=== PATIENT | female | born 1950 | race Caucasian/White ===

== ENCOUNTER 2017-08-31 10:57 | Day surgery (SDC) | payer OTHER ==
[~2017-08-31] VITALS: Ht 170.2 cm; Wt 83.9 kg
[~2017-08-31 10:57] MED LIST: Hair, Skin & N1 EACH PO; IBUP600 PO
== END 2017-08-31 15:57 | disposition home or self-care (01) ==
LOC: ORSCMMR 10:57
PROVIDERS: Orthopaedic Surgery
PROC: 0QSK04Z Reposition Left Fibula with Internal Fixation Device, Open Approach (ICD-10-PCS; principal; 2017-08-31 12:30)
DX: S82.842A Displaced bimalleolar fracture of left lower leg, initial encounter for closed fracture (principal); W18.30XA Fall on same level, unspecified, initial encounter
CPT/HCPCS: C1713; J0171; J0330; J0690; J1885; J2250; J3010; J7120

== ENCOUNTER 2021-07-07 20:13 | Emergency (ER) | payer OTHER ==
[~2021-07-07] VITALS: Ht 170.2 cm; Wt 81.7 kg
== END 2021-07-07 23:07 | disposition home or self-care (01) ==
LOC: ER 20:13
DX: S01.81XA Laceration without foreign body of other part of head, initial encounter (principal); F10.129 Alcohol abuse with intoxication, unspecified; F43.21 Adjustment disorder with depressed mood; X58.XXXA Exposure to other specified factors, initial encounter
CPT/HCPCS: 12001; 70450; 72125; 93005; 93010; 99284-25

== ENCOUNTER 2022-01-27 13:39 | Emergency (ER) | payer OTHER ==
[~2022-01-27] VITALS: Ht 170.2 cm; Wt 83.9 kg
== END 2022-01-27 15:59 | disposition home or self-care (01) ==
LOC: ER 13:39
DX: S52.601A Unspecified fracture of lower end of right ulna, initial encounter for closed fracture (principal); W22.8XXA Striking against or struck by other objects, initial encounter
CPT/HCPCS: 29105; 73110; 99283-25